=== PATIENT | male | born 1995 | race African-American/Black ===

== ENCOUNTER 2019-09-02 15:13 | Emergency (ER) | payer SELFPAY ==
[~2019-09-02] VITALS: Ht 185.4 cm; Wt 75.0 kg
[2019-09-02] MEDS ORDERED: DEXAMETHASONE 4MG TABLET PO ONE (16:15)
[2019-09-02 17:05] VITALS: BP 158/82
== END 2019-09-02 17:06 | disposition home or self-care (01) ==
LOC: ER 15:13
DX: J03.90 Acute tonsillitis, unspecified (principal); J45.909 Unspecified asthma, uncomplicated
CPT/HCPCS: 99283; J8540